=== PATIENT | female | born 1945 | race Caucasian/White ===

== ENCOUNTER 2017-09-24 12:17 | Outpatient (CLI) | payer MEDICARE, OTHER ==
--- NOTE | 2017-09-27 11:54 | Mammography Report ---
BILATERAL SCREENING MAMMOGRAM: 09/24/2017 COMPARISON: Mammogram 02/23/2016. INDICATION: Screening. TECHNIQUE: Routine bilateral CC and MLO projections were obtained of the breasts. FINDINGS: The breast parenchyma is heterogeneously dense which may limit the sensitivity of mammography. There are postoperative changes of the right breast. No dominant mass, architectural distortion, or concerning cluster of microcalcifications are seen. IMPRESSION: 1. BIRADS CATEGORY 2 - BENIGN FINDINGS. 2. RECOMMEND ANNUAL SCREENING MAMMOGRAM. STANDARD QUALIFYING STATEMENTS: 1. This examination was reviewed with the aid of Computer-Aided Detection (CAD) . 2. A negative or benign imaging report should not delay biopsy if clinically suspicious findings are present. Consider surgical consultation if warranted. More than 5 % of cancers are not identified by imaging. 3. Dense breasts may obscure an underlying neoplasm. TD: 09/27/2017 11:54 MTDScot
== END 2017-09-24 12:18 | disposition home or self-care (01) ==
LOC: DI 12:17
PROVIDERS: ATTEND Internal Medicine
DX: Z12.31 Encounter for screening mammogram for malignant neoplasm of breast (principal)
CPT/HCPCS: 77067

== ENCOUNTER 2017-11-23 12:19 | Outpatient (CLI) | payer MEDICARE, OTHER ==
[2017-11-23 18:48] LABS: BASOPHILS # (AUTO) 0.1 10^3/uL (0.0-0.1); BASOPHILS % (AUTO) 1.3 %; EOSINOPHILS # (AUTO) 0.1 10^3/uL (0.0-0.7); EOSINOPHILS % (AUTO) 2.1 %; HGB - HEMOGLOBIN 14.3 g/dL (12.0-16.0); LYMPHOCYTES # (AUTO) 1.8 10^3/uL (1.5-3.5); LYMPHOCYTES % (AUTO) 27.1 %; MEAN CORPUSCULAR HEMOGLOBIN 30.2 pg (27.0-31.0); MEAN CORPUSCULAR HGB CONC 32.2 g/dL (32.0-36.0); MEAN CORPUSCULAR VOLUME 93.5 fL (81.0-99.0); MEAN PLATELET VOLUME 9.7 fL (7.9-10.8); MONOCYTES # (AUTO) 0.5 10^3/uL (0.0-1.0); MONOCYTES % (AUTO) 7.5 %; PLT - PLATELET COUNT 186 10^3/uL (130-450); RED BLOOD COUNT 4.75 10^6/uL (4.20-5.40); RED CELL DISTRIBUTION WIDTH 15.3 % (12.0-15.0); WHITE BLOOD COUNT 6.5 x10^3/uL (4.8-10.8)
[2017-11-23 19:27] LABS: ALBUMIN 4.1 g/dL (3.2-5.5); ALBUMIN/GLOBULIN RATIO 1.2 (1.0-2.2); ALKALINE PHOSPHATASE 68 IU/L (42-121); ALT ALANINE AMINOTRANSFERASE 18 IU/L (10-60); AST ASPARTATE AMINOTRANSFERASE 20 IU/L (10-42); BILIRUBIN,TOTAL 0.8 mg/dL (0.2-1.0); BUN - BLOOD UREA NITROGEN 19 mg/dL (6-20); CALCIUM 9.9 mg/dL (8.5-10.3); CARBON DIOXIDE - CO2 27 mmol/L (21-32); CHLORIDE 105 mmol/L (101-111); CHOL/HDL RATIO 3.5 (<4.4); CHOLESTEROL 268 mg/dL; CREATININE 0.8 mg/dL (0.4-1.0); GFR - MDRD 70 (>89); GLUCOSE 88 mg/dL (70-100); HDL CHOLESTEROL 76 mg/dL; LDL CHOLESTEROL,CALCULATED 171 mg/dL; LDL/HDL RATIO 2.3 (<4.4); SODIUM 139 mmol/L (135-145); TOTAL PROTEIN 7.6 g/dL (6.7-8.2); VLDL CHOLESTEROL 21 mg/dL
[2017-11-23 20:47] LABS: HB2 TOTAL 16.2 g/dL; HEMOGLOBIN A1C 0.51 g/dL
== END 2017-11-23 12:20 | disposition home or self-care (01) ==
LOC: LAB.WCP 12:19
PROVIDERS: ATTEND Physician Assistant
DX: Z00.00 Encounter for general adult medical examination without abnormal findings (principal); I10 Essential (primary) hypertension; E78.00 Pure hypercholesterolemia, unspecified
CPT/HCPCS: 36415; 80053; 80061; 83036; 83721; 84443; 85025

== ENCOUNTER 2017-12-13 07:26 | Outpatient (CLI) | payer MEDICARE, OTHER ==
[2017-12-13] MEDS ORDERED: GADOBUTROL 7.5 MMOL/7.5 ML VIAL ONE (07:50)
[2017-12-13] MEDS ORDERED: GADOBUTROL 7.5 MMOL/7.5 ML VIAL IVP ONE (08:35)
--- NOTE | 2017-12-13 17:01 | MRI Report ---
MRI BRAIN WITHOUT AND WITH CONTRAST INDICATION: 72-year-old female. Right face numbness 6 weeks ago, mostly subsided now. TECHNIQUE: 1. Sagittal T1 3-D and T1 spin-echo. 2. Coronal fat-saturated T2. 3. Axial T1 3-D, FLAIR, T2, T2* and DWI. 4. 7.5 cc IV Gadavist. T1 3-D axial with sagittal and coronal reformats. COMPARISON: None. FINDINGS: There is mild generalized prominence of the cerebral cortical sulci and very mild, ex vacuo enlargeme nt of the third and lateral ventricles. The degree of volume loss is considered well within normal li mits for stated age. A roughly 6.5 x 5.5 mm, T1 hypointense and T2 hyperintense lesion is identified in mid, left thalamus , consistent with the sequela of prior, lacunar type infarction. There is no diffusion restriction on DWI. A mild amount of white matter disease is identified in the supratentorial brain, manifested as small T2 hyperintensities that are scattered throughout the periventricular, deep and subcortical white mat ter bilaterally. A frontoparietal distribution predominates. 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 The signal intensity of cortex and white matter is otherwise unremarkable. There appear to be flow voids for the main intracranial arteries. No abnormal diffusion restriction i s demonstrated. No evidence of acute or chronic hemorrhage on T2*GRE sequence. There is a homogeneously and robustly enhancing extra-axial mass lesion in the anteromedial aspect of the left middle cranial fossa that measures about 10 mm maximal AP by 9.5 mm maximal transverse by 1 2 mm maximal craniocaudad. This lesion is of relatively low signal intensity on T2. There is no appar ent mass effect on the adjacent, mesial anterior left temporal lobe. No additional enhancing extra- o r intra-axial mass lesion is identified. No pathologic meningeal or cranial nerve enhancement is demo nstrated. There appears be normal intravascular contrast enhancement in the dural venous sinuses and deep venous structures. Limited assessment of the orbits reveals no gross pathology. There is minor m ucosal thickening in a few ethmoid air cells. The paranasal sinuses are otherwise essentially clear. A small amount of fluid is identified at the right mastoid tip. There is a minimal amount of fluid at left mastoid tip. No soft tissue swelling is identified overlying either mastoid. There is no eviden ce of an obstructing nasopharyngeal mass. Marrow signal intensity in the regional skeletal structures is unremarkable. IMPRESSION: 1. 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 2. A 6.5 x 5.5 mm, T2 hyperintense/T1 hypointense lesion is identified in mid left thalamus, consiste nt with the sequela of prior (subacute or older) lacunar type infarction. This most likely represents the cause for the patient's right face numbness that occurred 6 weeks ago. 3. Small enhancing extra-axial mass lesion, anteromedial aspect left middle cranial fossa as describe d. No significant mass effect on adjacent left temporal lobe. There is a differential for this lesion that would include dural based metastasis. However, this most likely represents a benign meningioma. 4. No other significant intracranial findings. Referring Provider Line: [phone] SITE ID: [id number]
[2017-12-13 17:15] VITALS: BP 142/84
--- NOTE | 2017-12-13 17:20 | CARDIAC PROCEDURE NOTE ---
DATE OF SERVICE: 12/13/2017 Physician: SHIRIN Sotelo PROCEDURE: Cardiac treadmill stress test. PROCEDURE SYMPTOMS: Shortness of breath with exertion. CARDIAC RISK FACTORS: Age, hypertension, hyperlipidemia. PREVIOUS CARDIAC PROCEDURES: None. CLINICAL HISTORY: A 72-year-old female without known coronary artery disease. INITIAL RESTING VITAL SIGNS: Blood pressure 142/84, heart rate 89, height 66 inches, weight 173 pounds, BMI 28.68. PROCEDURE AND FINDINGS: The patient identity and date verified. Consent signed. The patient performed treadmill exercise using a Sergio protocol completing 4 minutes , 4 seconds and completing an estimated workload of 5.91 metabolic equivalents. Maximal blood pressure was 192/98 with a heart rate of 152 beats per minute or 104% of maximum predicted heart rate for age. The blood pressure response to exercise was within normal limits. The patient stopped suddenly on her own, stating "I cannot exercise and talk at the same time." We were in the process of asking how hard she was exercising. She denied that she had any chest pain or exertional dyspnea when she stopped. The resting ECG demonstrated normal sinus rhythm with nonspecific ST and T-wave changes. Maximum ST segment depression was 1 mm and horizontal, with inverted T-waves in all inferior and lateral leads. There was 1 PVC. FINAL IMPRESSION: 1. Suboptimal exam as the patient jumped off the treadmill prematurely. However , she met criteria for an acceptable test. 2. Positive stress electrocardiogram for ischemia by electrocardiographic criteria. 3. Negative stress test clinically for angina. 4. Single PVC. 5. Recommend further cardiac testing with myocardial perfusion scan. TD: 12/13/2017 15:12 MTDScot
== END 2017-12-13 07:27 | disposition home or self-care (01) ==
LOC: DI 07:26
PROVIDERS: ATTEND Physician Assistant
DX: R20.0 Anesthesia of skin (principal); G93.9 Disorder of brain, unspecified; R06.02 Shortness of breath; I25.9 Chronic ischemic heart disease, unspecified; I49.3 Ventricular premature depolarization
CPT/HCPCS: 70553; A9585

== ENCOUNTER → 2018-01-24 | Outpatient (CLI) | payer MEDICARE, OTHER | LOC: DI 09:00 | PROVIDERS: ATTEND Physician Assistant | DX: Z53.9 Procedure and treatment not carried out, unspecified reason (principal) | CPT/HCPCS: 78452; 93017 ==

== ENCOUNTER 2018-03-07 09:18 | Outpatient (CLI) | payer MEDICARE, OTHER ==
--- NOTE | 2018-03-07 12:17 | Ultrasound Report ---
Procedure Date: 03/07/2018 Accession Number: [id number] / [id number] Procedure: US - Carotid Doppler Complete CPT Code: FULL RESULT: EXAM: BILATERAL CAROTID AND VERTEBRAL ARTERY DUPLEX DOPPLER ULTRASOUND: EXAM DATE: 03/07/2018 09:35 AM CLINICAL HISTORY: Hyperlipidemia, history of stroke. COMPARISON: 12/13/2017 brain MRI. TECHNIQUE: Grayscale imaging, color Doppler, and duplex spectral Doppler were used to evaluate the carotid and vertebral arteries bilaterally. Static images were obtained. FINDINGS: Minimal plaque is identified . normal antegrade flow is present in bilateral vertebral arteries. VELOCITIES (cm/sec): Right CCA mid: PSV 125 cm/sec CCA dist: PSV 109 cm/sec ICA prox: PSV 87 cm/sec, EDV 24 cm/sec ICA mid: PSV 79 cm/sec, EDV 28 cm/sec ICA dist: PSV 91 cm/sec, EDV 27 cm/sec ECA: PSV 105 cm/sec Vert: PSV 46 cm/sec ICA/CCA: 0.72 Left CCA mid: PSV 130 cm/sec CCA dist: PSV 103 cm/sec ICA prox: PSV 80 cm/sec, EDV 18 cm/sec ICA mid: PSV 73 cm/sec, EDV 22 cm/sec ICA dist: PSV 81 cm/sec, EDV 29 cm/sec ECA: PSV 120 cm/sec Vert: PSV 69 cm/sec ICA/CCA: 0.62 ICA diameter stenosis: Right: <50% by velocity and <70% by NASCET criteria. Left: <50% by velocity and <70% by NASCET criteria. IMPRESSION: 1. Minimal bilateral carotid artery plaquing. 2. In the right carotid artery there are no elevated carotid artery velocities to suggest hemodynamically significant stenosis. 3. In the left carotid artery there are no elevated carotid artery velocities to suggest hemodynamically significant stenosis. 4. Normal antegrade flow is present in bilateral vertebral arteries. General Recommendations: Stenosis =50% ICA - Follow-up ultrasound 6-12 months Stenosis <50% ICA - High Risk Patient with plaque - Follow-up ultrasound 1-2 years Normal Study but High Risk Patient - Follow-up ultrasound 3-5 years Management recommendations and diagnostic criteria are based on current IAC endorsed standards in Carotid Artery Stenosis: Grayscale and Doppler Ultrasound Diagnosis. Validated velocity measurements with angiographic measurements and velocity criteria are extrapolated from diameter data as defined by the Society of Radiologists in Ultrasound Consensus Conference Radiology 2003; 229;340-346. RADIA
== END 2018-03-07 09:19 | disposition home or self-care (01) ==
LOC: DI 09:18
PROVIDERS: ATTEND Internal Medicine Cardiovascular Disease
DX: E78.5 Hyperlipidemia, unspecified (principal); Z86.73 Personal history of transient ischemic attack (TIA), and cerebral infarction without residual deficits
CPT/HCPCS: 93880

== ENCOUNTER 2018-08-09 08:00 | Outpatient (CLI) | payer MEDICARE, OTHER ==
[2018-08-09 14:09] LABS: ALBUMIN/GLOBULIN RATIO 1.3 (1.0-2.2); ALKALINE PHOSPHATASE 66 IU/L (42-121); ALT ALANINE AMINOTRANSFERASE 19 IU/L (10-60); AST ASPARTATE AMINOTRANSFERASE 20 IU/L (10-42); BUN - BLOOD UREA NITROGEN 19 mg/dL (6-20); CALCIUM 9.6 mg/dL (8.5-10.3); CARBON DIOXIDE - CO2 26 mmol/L (21-32); CHLORIDE 108 mmol/L (101-111); CHOL/HDL RATIO 2.1 (<4.4); CHOLESTEROL 144 mg/dL; CREATININE 0.7 mg/dL (0.4-1.0); GFR - MDRD 82 (>89); GLUCOSE 96 mg/dL (70-100); HDL CHOLESTEROL 69 mg/dL; LDL CHOLESTEROL,CALCULATED 61 mg/dL; LDL/HDL RATIO 0.9 (<4.4); SODIUM 138 mmol/L (135-145); TOTAL PROTEIN 7.2 g/dL (6.7-8.2); VLDL CHOLESTEROL 14 mg/dL
== END 2018-08-09 23:59 | disposition home or self-care (01) ==
LOC: LAB.WCP 08:00
PROVIDERS: ATTEND Physician Assistant
DX: I10 Essential (primary) hypertension (principal)
CPT/HCPCS: 36415; 80053; 80061; 83721

== ENCOUNTER 2019-03-19 12:17 | Outpatient (CLI) | payer MEDICARE, OTHER ==
[2019-03-19 13:09] LABS: BASOPHILS # (AUTO) 0.1 10^3/uL (0.0-0.1); BASOPHILS % (AUTO) 1.3 %; EOSINOPHILS # (AUTO) 0.3 10^3/uL (0.0-0.7); EOSINOPHILS % (AUTO) 4.3 %; HGB - HEMOGLOBIN 13.7 g/dL (12.0-16.0); LYMPHOCYTES # (AUTO) 1.6 10^3/uL (1.5-3.5); MEAN CORPUSCULAR HEMOGLOBIN 30.2 pg (27.0-31.0); MEAN CORPUSCULAR HGB CONC 31.7 g/dL (32.0-36.0); MEAN CORPUSCULAR VOLUME 95.4 fL (81.0-99.0); MEAN PLATELET VOLUME 11.1 fL (7.9-10.8); MONOCYTES # (AUTO) 0.5 10^3/uL (0.0-1.0); MONOCYTES % (AUTO) 7.6 %; NEUTROPHILS # (AUTO) 3.8 10^3/uL (1.5-6.6); NEUTROPHILS % (AUTO) 60.6 %; PLT - PLATELET COUNT 140 10^3/uL (130-450); RED BLOOD COUNT 4.53 10^6/uL (4.20-5.40); RED CELL DISTRIBUTION WIDTH 13.7 % (12.0-15.0); WHITE BLOOD COUNT 6.2 x10^3/uL (4.8-10.8)
[2019-03-19 13:13] LABS: ALBUMIN/GLOBULIN RATIO 1.3 (1.0-2.2); ALKALINE PHOSPHATASE 61 IU/L (42-121); ALT ALANINE AMINOTRANSFERASE 20 IU/L (10-60); AST ASPARTATE AMINOTRANSFERASE 19 IU/L (10-42); BILIRUBIN,TOTAL 0.7 mg/dL (0.2-1.0); BUN - BLOOD UREA NITROGEN 29 mg/dL (6-20); CALCIUM 9.9 mg/dL (8.5-10.3); CARBON DIOXIDE - CO2 27 mmol/L (21-32); CHLORIDE 108 mmol/L (101-111); CHOL/HDL RATIO 2.2 (<4.4); CHOLESTEROL 150 mg/dL; GFR - MDRD 54 (>89); GLUCOSE 95 mg/dL (70-100); HDL CHOLESTEROL 67 mg/dL; LDL CHOLESTEROL,CALCULATED 70 mg/dL; SODIUM 141 mmol/L (135-145); TOTAL PROTEIN 7.1 g/dL (6.7-8.2); VLDL CHOLESTEROL 13 mg/dL
[2019-03-19 13:49] LABS: HB2 TOTAL 13.8 g/dL; HEMOGLOBIN A1C 0.5 g/dL; HEMOGLOBIN A1C % 5.5 % (4.6-6.2)
== END 2019-03-19 23:59 | disposition home or self-care (01) ==
LOC: LAB.WCP 12:17
PROVIDERS: ATTEND Physician Assistant
DX: Z00.00 Encounter for general adult medical examination without abnormal findings (principal); R94.39 Abnormal result of other cardiovascular function study; R06.09 Other forms of dyspnea; R20.0 Anesthesia of skin; I10 Essential (primary) hypertension; E78.00 Pure hypercholesterolemia, unspecified
CPT/HCPCS: 36415; 80053; 80061; 83036; 83721; 84443; 85025

== ENCOUNTER 2019-06-16 13:15 | Outpatient (CLI) | payer MEDICARE, OTHER ==
--- NOTE | 2019-06-16 16:57 | Mammography Report ---
Reason: SCREENING MAMMO Procedure Date: 06/16/2019 Accession Number: [id number] / [id number] Procedure: SILVESTRE - Screening Mammo w/Albino CPT Code: Final Report FULL RESULT: EXAM: Screening Mammo w/Albino DATE: 06/16/2019 1:50 PM CLINICAL HISTORY: The patient is an asymptomatic 73-year-old female presenting for screening mammography. No personal nor family history of breast cancer. Prior benign right breast excisional biopsy. TECHNIQUE: (B) - Bilateral CC and MLO views were obtained. Tomography utilized. COMPARISON: 09/24/2017, 02/23/2016, 01/04/2015 and 01/30/2013 PARENCHYMAL PATTERN: (A) - The breasts demonstrate scattered fibroglandular densities bilaterally. FINDINGS: Postsurgical deformity in the right breast is unchanged. Few scattered and loosely grouped calcifications noted in both breasts. There are no developing suspicious masses, pleomorphic calcifications, or areas of distortion. IMPRESSION: Benign findings. BI-RADS category 2. RECOMMENDATION: (ANNUAL) - Recommend routine annual screening mammography. BI-RADS CATEGORY: (2) - Benign Findings. STANDARD QUALIFYING STATEMENTS: 1. This examination was not reviewed with the aid of Computer-Aided Detection (CAD). 2. A negative or benign imaging report should not preclude biopsy if clinically suspicious findings are present. 3. Dense breasts may obscure an underlying neoplasm. 4. This examination was reviewed with the aid of 3D breast imaging (tomosynthesis).
== END 2019-06-16 13:16 | disposition home or self-care (01) ==
LOC: DI 13:15
DX: Z12.31 Encounter for screening mammogram for malignant neoplasm of breast (principal)
CPT/HCPCS: 77063; 77067

== ENCOUNTER 2020-03-18 08:00 | Outpatient (CLI) | payer MEDICARE, OTHER ==
[2020-03-18 12:03] LABS: BASOPHILS # (AUTO) 0.1 10^3/uL (0.0-0.1); BASOPHILS % (AUTO) 0.9 %; EOSINOPHILS # (AUTO) 0.3 10^3/uL (0.0-0.7); HGB - HEMOGLOBIN 13.9 g/dL (12.0-16.0); LYMPHOCYTES # (AUTO) 1.8 10^3/uL (1.5-3.5); LYMPHOCYTES % (AUTO) 23.4 %; MEAN CORPUSCULAR HEMOGLOBIN 29.8 pg (27.0-31.0); MEAN CORPUSCULAR HGB CONC 31.6 g/dL (32.0-36.0); MEAN CORPUSCULAR VOLUME 94.4 fL (81.0-99.0); MEAN PLATELET VOLUME 10.4 fL (7.9-10.8); MONOCYTES # (AUTO) 0.6 10^3/uL (0.0-1.0); MONOCYTES % (AUTO) 7.2 %; NEUTROPHILS # (AUTO) 4.9 10^3/uL (1.5-6.6); NEUTROPHILS % (AUTO) 64.2 %; PLT - PLATELET COUNT 243 10^3/uL (130-450); RED BLOOD COUNT 4.66 10^6/uL (4.20-5.40); RED CELL DISTRIBUTION WIDTH 13.7 % (12.0-15.0); WHITE BLOOD COUNT 7.7 x10^3/uL (4.8-10.8)
[2020-03-18 12:18] LABS: ALBUMIN 4.1 g/dL (3.2-5.5); ALBUMIN/GLOBULIN RATIO 1.3 (1.0-2.2); ALKALINE PHOSPHATASE 72 IU/L (42-121); ALT ALANINE AMINOTRANSFERASE 23 IU/L (10-60); AST ASPARTATE AMINOTRANSFERASE 20 IU/L (10-42); BILIRUBIN,TOTAL 0.9 mg/dL (0.2-1.0); BUN - BLOOD UREA NITROGEN 22 mg/dL (6-20); CALCIUM 9.7 mg/dL (8.5-10.3); CARBON DIOXIDE - CO2 29 mmol/L (21-32); CHLORIDE 107 mmol/L (101-111); CHOL/HDL RATIO 2.4 (<4.4); CHOLESTEROL 150 mg/dL; CREATININE 0.9 mg/dL (0.4-1.0); GLUCOSE 99 mg/dL (70-100); HDL CHOLESTEROL 63 mg/dL; LDL CHOLESTEROL,CALCULATED 72 mg/dL; LDL/HDL RATIO 1.1 (<4.4); SODIUM 142 mmol/L (135-145); TOTAL PROTEIN 7.2 g/dL (6.7-8.2); VLDL CHOLESTEROL 15 mg/dL
== END 2020-03-18 23:59 | disposition home or self-care (01) ==
LOC: LAB.WCP 08:00
PROVIDERS: ATTEND Physician Assistant
DX: Z00.00 Encounter for general adult medical examination without abnormal findings (principal); R73.9 Hyperglycemia, unspecified; E78.00 Pure hypercholesterolemia, unspecified; I10 Essential (primary) hypertension
CPT/HCPCS: 36415; 80053; 80061; 83721; 84443; 85025

== ENCOUNTER 2020-08-27 12:14 | Outpatient (CLI) | payer MEDICARE, OTHER ==
--- NOTE | 2020-08-30 12:55 | Mammography Report ---
BILATERAL DIGITAL SCREENING MAMMOGRAM 3D/2D: 08/27/2020 CLINICAL: Baseline exam. Routine screening. Comparison is made to exams dated: 06/16/2019 mammogram, 09/24/2017 mammogram, and 02/23/2016 mammogram - [facility]. There are scattered fibroglandular elements in both breasts. There is a 1.2 cm irregular high density focal asymmetry in the right breast at 12 o'clock anterior d epth. This is more prominent and increased in size. There is a post-surgical scar associated with t he focal asymmetry. There also is a 0.5 cm irregular equal density asymmetry in the right breast posterior depth superior region seen on the mediolateral oblique view only. This is more prominent and increased in size. No other significant masses, calcifications, or other findings are seen in either breast. IMPRESSION: INCOMPLETE: NEEDS ADDITIONAL IMAGING EVALUATION The 1.2 cm irregular high density focal asymmetry in the right breast at 12 o'clock anterior depth is indeterminate. Additional views with possible ultrasound are recommended. The 0.5 cm irregular equal density asymmetry in the right breast posterior depth superior region seen on the mediolateral oblique view only is indeterminate. Additional views with possible ultrasound a re recommended. This exam was interpreted at Station ID: [id number]. NOTE: For mammograms, a report in lay terms will be sent to the patient. Approximately 15% of breast malignancies will not be visualized mammographically. In the management of a palpable breast mass, a negative mammogram must not discourage biopsy of a clinically suspicious lesion. Electronically Signed By: Pastor Crowley M.D. aty/penrad:08/27/2020 13:19:59 ACR BI-RADS Category 0: Incomplete 3340F PARENCHYMAL PATTERN: (A) - The breast(s) demonstrate(s) scattered fibroglandular densities. BI-RADS CATEGORY: (0) - 0 Mammo and US [id number] Immediate follow-up LATERALITY: (R)
== END 2020-08-27 12:15 | disposition home or self-care (01) ==
LOC: DI 12:14
DX: Z12.31 Encounter for screening mammogram for malignant neoplasm of breast (principal); R92.8 Other abnormal and inconclusive findings on diagnostic imaging of breast

== ENCOUNTER 2020-09-20 10:52 | Outpatient (CLI) | payer MEDICARE, OTHER ==
--- NOTE | 2020-09-21 11:33 | Mammography Report ---
UNILATERAL RIGHT DIGITAL DIAGNOSTIC MAMMOGRAM 3D/2D: 09/20/2020 CLINICAL: Patient returns today to evaluate a focal asymmetry in the right breast. Comparison is made to exams dated: 08/27/2020 mammogram, 06/16/2019 mammogram, 09/24/2017 mammogram, an d 02/23/2016 mammogram - [facility]. There are scattered fibroglandular elements in right breast. There is an oval equal density focal asymmetry with an indistinct margin in the right breast at 11 o' clock middle depth. This is more prominent and correlates with sequelae of prior surgery. There is architectural distortion, a post-surgical scar, skin retraction, and trabecular thickening associated with the focal asymmetry. There also is an oval equal density asymmetry with an indistinct and circumscribed margin in the righ t breast posterior depth superior region seen on the mediolateral oblique view only. No other significant masses or calcifications are seen in the breast. IMPRESSION: INCOMPLETE: NEEDS ADDITIONAL IMAGING EVALUATION The oval equal density focal asymmetry in the right breast at 11 o'clock middle depth is indeterminat e. An ultrasound is recommended. The oval equal density asymmetry in the right breast posterior depth superior region seen on the medi olateral oblique view only is indeterminate. An ultrasound is recommended. Ultrasound will be performed immediately following the current exam. This exam was interpreted at Station ID: [id number]. NOTE: For mammograms, a report in lay terms will be sent to the patient. Approximately 15% of breast malignancies will not be visualized mammographically. In the management of a palpable breast mass, a negative mammogram must not discourage biopsy of a clinically suspicious lesion. Electronically Signed By: Braxton Judge M.D. ddp/:09/20/2020 11:43:48 ACR BI-RADS Category 0: Incomplete 3340F PARENCHYMAL PATTERN: (A) - The breast(s) demonstrate(s) scattered fibroglandular densities. BI-RADS CATEGORY: (0) - 0 Ultrasound [id number] Immediate follow-up LATERALITY: (B)
--- NOTE | 2020-09-21 11:34 | Ultrasound Report ---
LIMITED ULTRASOUND OF RIGHT BREAST AND AXILLA: 09/20/2020 CLINICAL: Patient returns for additional imaging over a suspected mass in the right breast. Comparison is made to exams dated: 09/20/2020 mammogram, 08/27/2020 mammogram, 06/16/2019 mammogram, 09/13 mammogram, and 02/23/2016 mammogram - [facility]. Color flow and real-time ultrasound of the right breast 10-12 o'clock, and axilla regions were perfor med on the areas of interest. There is a 0.6 cm x 0.5 cm x 0.5 cm oval mass with an indistinct margin in the right breast at 11 o'c lock middle depth. This oval mass is hypoechoic and hyperechoic but of mixed echogenicity. This cor relates with mammography findings. Color flow imaging demonstrates that there is no vascularity pres ent. There also is a benign 1.6 cm x 1.3 cm x 1.8 cm irregular post-surgical scar with an indistinct brandan n in the right breast at 12 o'clock anterior depth. This irregular post-surgical scar is hypoechoic with posterior acoustic shadowing and extends to the skin. This correlates with mammography findings . Color flow imaging demonstrates that there is no vascularity present. IMPRESSION: SUSPICIOUS OF MALIGNANCY The 0.6 cm x 0.5 cm x 0.5 cm oval mass in the right breast at 11 o'clock middle depth is suspicious o f malignancy. An ultrasound guided biopsy is recommended. The 1.6 cm x 1.3 cm x 1.8 cm irregular post-surgical scar in the right breast at 12 o'clock anterior depth appears benign. The findings were discussed with the patient at the conclusion of the study by Dr. Brumfield. This exam was interpreted at Station ID: [id number]. Electronically Signed By: Braxton Judge M.D. ddp/:09/20/2020 12:24:47 Ultrasound BI-RADS: 4 Suspicious for malignancy BI-RADS CATEGORY: (4) - 4 None [id number] Immediate follow-up LATERALITY: ()
== END 2020-09-20 10:53 | disposition home or self-care (01) ==
LOC: DI 10:52
PROVIDERS: ATTEND Internal Medicine
DX: N63.11 Unspecified lump in the right breast, upper outer quadrant (principal)

== ENCOUNTER 2020-10-04 08:00 | Outpatient (CLI) | payer MEDICARE, OTHER ==
[2020-10-04 11:32] LABS: BASOPHILS # (AUTO) 0.1 10^3/uL (0.0-0.1); BASOPHILS % (AUTO) 1.1 %; EOSINOPHILS # (AUTO) 0.2 10^3/uL (0.0-0.7); EOSINOPHILS % (AUTO) 3.9 %; HCT - HEMATOCRIT 44.3 % (37.0-47.0); LYMPHOCYTES # (AUTO) 1.4 10^3/uL (1.5-3.5); LYMPHOCYTES % (AUTO) 22.7 %; MEAN CORPUSCULAR HGB CONC 31.6 g/dL (32.0-36.0); MEAN CORPUSCULAR VOLUME 94.9 fL (81.0-99.0); MEAN PLATELET VOLUME 11.2 fL (7.9-10.8); MONOCYTES # (AUTO) 0.5 10^3/uL (0.0-1.0); MONOCYTES % (AUTO) 7.7 %; NEUTROPHILS % (AUTO) 64.4 %; PLT - PLATELET COUNT 178 10^3/uL (130-450); RED BLOOD COUNT 4.67 10^6/uL (4.20-5.40); WHITE BLOOD COUNT 6.1 x10^3/uL (4.8-10.8)
[2020-10-04 12:28] LABS: ALBUMIN 4.3 g/dL (3.2-5.5); ALBUMIN/GLOBULIN RATIO 1.3 (1.0-2.2); BILIRUBIN,TOTAL 0.8 mg/dL (0.2-1.0); CALCIUM 10.2 mg/dL (8.5-10.3); CREATININE 0.8 mg/dL (0.4-1.0); MAGNESIUM 2.3 mg/dL (1.7-2.8); POTASSIUM 4.3 mmol/L (3.5-5.0); TOTAL PROTEIN 7.6 g/dL (6.7-8.2)
[2020-10-04 12:48] LABS: ESTIMATED AVERAGE GLUCOSE 103 mg/dL (70-100); HEMOGLOBIN A1c% 5.2 % (4.27-6.07)
== END 2020-10-04 23:59 | disposition home or self-care (01) ==
LOC: LAB.WCP 08:00
PROVIDERS: ATTEND Internal Medicine
DX: G47.62 Sleep related leg cramps (principal); R73.01 Impaired fasting glucose; R92.8 Other abnormal and inconclusive findings on diagnostic imaging of breast; I10 Essential (primary) hypertension
CPT/HCPCS: 36415; 80053; 83036; 83735; 85025

== ENCOUNTER 2020-10-08 12:49 | Outpatient (CLI) | payer MEDICARE, OTHER ==
[~2020-10-08 12:49] MED LIST: BUFFERED LIDOCAINE 10 ML SYRINGE ONE
[2020-10-08] MEDS ORDERED: BUFFERED LIDOCAINE 10 ML SYRINGE IU ONE (13:56)
--- NOTE | 2020-10-12 11:15 | Ultrasound Report ---
LIMITED ULTRASOUND OF RIGHT BREAST: 10/08/2020 CLINICAL: Additional evaluation requested from prior study.Rt breast biopsy cancelled. Comparison is made to exam dated: 09/20/2020 ultrasound - [facility]. Color flow ultrasound of the right breast 11 o'clock region was performed on the areas of interest. Hinojosa scale images of the real-time examination were reviewed. The breast tissue is homogeneous fibroglandular in the right breast. There is a 0.4 cm x 0.2 cm x 0.3 cm oval mass with a circumscribed margin in the right breast at 11 o 'clock middle depth. This oval mass is hypoechoic. This abnormality is decreased in size and correl ates with prior 09/20/20 ultrasound findings when the size was reported as 6 x 5 x 5 mm. Color flow im aging demonstrates that there is no vascularity present. IMPRESSION: SUSPICIOUS OF MALIGNANCY The 0.4 cm x 0.2 cm x 0.3 cm oval mass in the right breast likely represents a benign involuting mild ly complex cyst and is at a low suspicion for malignancy. A 6-month followup targeted US is recommen ded for followup. The findings and recommendation were reviewed with the patient and she agrees with this approach. This exam was interpreted at Station ID: [id number]. Electronically Signed By: Kavon Mckinney M.D. [facility]/:10/11/2020 09:34:54 Ultrasound BI-RADS: 4a Low suspicion for malignancy BI-RADS CATEGORY: (4a) - Low Susp Unspecified - other recall n/a LATERALITY: (B)
== END 2020-10-08 12:50 | disposition home or self-care (01) ==
LOC: DI 12:49
PROVIDERS: ATTEND Internal Medicine
DX: R92.8 Other abnormal and inconclusive findings on diagnostic imaging of breast (principal)

== ENCOUNTER 2020-11-01 08:15 | Outpatient (CLI) | payer MEDICARE, OTHER ==
--- NOTE | 2020-11-01 10:50 | DEXA Report ---
PROCEDURE: Dexa Spine and/or Hip INDICATIONS: MENOPAUSAL STATE TECHNIQUE: Dual energy x-ray absorptiometry (DXA) was performed on a Zocere System. Regions measur ed are the AP Spine, femoral neck, and if needed forearm. COMPARISON: None. FINDINGS: Lumbar Spine: Bone Mineral Density 1.175 g/cm/cm,T score 0.0, normal bone mineral density Left Femoral Neck: Bone Mineral Density 0.966 g/cm/cm, T score -0.3, normal bone mineral density (T score greater or equal to -1.0: NORMAL) (T score from -1.1 to -2.4: OSTEOPENIA) (T score less than or equal to -2.5 to: OSTEOPOROSIS) Impression: Normal bone mineral density. Patients with diagnosis of osteoporosis or osteopenia should have regular bone mineral density assess ment. For those eligible for Medicare, routine testing is allowed once every 2 years. Testing frequ ency can be increased for patients who have rapidly progressing disease or for those who are receivin g medical therapy to restore bone mass. Reviewed by: Pastor Crowley MD on 11/01/2020 9:49 AM RANDALL Approved by: Pastor Crowley MD on 11/01/2020 9:49 AM RANDALL Station ID: [id number]
== END 2020-11-01 08:16 | disposition home or self-care (01) ==
LOC: DI 08:15
PROVIDERS: ATTEND Internal Medicine
DX: Z78.0 Asymptomatic menopausal state (principal)

== ENCOUNTER 2021-03-23 08:00 | Outpatient (CLI) | payer MEDICARE, OTHER ==
[2021-03-23 12:06] LABS: BASOPHILS # (AUTO) 0.1 10^3/uL (0.0-0.1); BASOPHILS % (AUTO) 0.9 %; EOSINOPHILS # (AUTO) 0.2 10^3/uL (0.0-0.7); EOSINOPHILS % (AUTO) 2.4 %; HCT - HEMATOCRIT 43.1 % (37.0-47.0); HGB - HEMOGLOBIN 13.8 g/dL (12.0-16.0); LYMPHOCYTES # (AUTO) 1.4 10^3/uL (1.5-3.5); LYMPHOCYTES % (AUTO) 21.4 %; MEAN CORPUSCULAR HEMOGLOBIN 30.1 pg (27.0-31.0); MEAN CORPUSCULAR VOLUME 93.9 fL (81.0-99.0); MEAN PLATELET VOLUME 11.2 fL (7.9-10.8); MONOCYTES # (AUTO) 0.5 10^3/uL (0.0-1.0); MONOCYTES % (AUTO) 7.5 %; NEUTROPHILS # (AUTO) 4.5 10^3/uL (1.5-6.6); NEUTROPHILS % (AUTO) 67.6 %; PLT - PLATELET COUNT 225 10^3/uL (130-450); RED BLOOD COUNT 4.59 10^6/uL (4.20-5.40); RED CELL DISTRIBUTION WIDTH 13.7 % (12.0-15.0); WHITE BLOOD COUNT 6.7 x10^3/uL (4.8-10.8)
[2021-03-23 12:23] LABS: BUN - BLOOD UREA NITROGEN 20 mg/dL (6-20); CALCIUM 10.1 mg/dL (8.5-10.3); CARBON DIOXIDE - CO2 26 mmol/L (21-32); CHLORIDE 108 mmol/L (101-111); CHOL/HDL RATIO 2.6 (<4.4); CHOLESTEROL 177 mg/dL; GFR - MDRD 54 (>89); GLUCOSE 101 mg/dL (70-100); HDL CHOLESTEROL 68 mg/dL; LDL CHOLESTEROL,CALCULATED 84 mg/dL; LDL/HDL RATIO 1.2 (<4.4); SODIUM 143 mmol/L (135-145); TRIGLYCERIDES 124 mg/dL; VLDL CHOLESTEROL 25 mg/dL
[2021-03-23 12:38] LABS: ESTIMATED AVERAGE GLUCOSE 114 mg/dL (70-100); HEMOGLOBIN A1c% 5.6 % (4.27-6.07)
== END 2021-03-23 23:59 | disposition home or self-care (01) ==
LOC: LAB.WCP 08:00
PROVIDERS: ATTEND Internal Medicine
DX: I10 Essential (primary) hypertension (principal); E78.5 Hyperlipidemia, unspecified; R73.01 Impaired fasting glucose
CPT/HCPCS: 36415; 80048; 80061; 83036; 83721; 85025

== ENCOUNTER 2021-05-24 08:19 | Outpatient (CLI) | payer MEDICARE, OTHER ==
--- NOTE | 2021-05-25 09:53 | Ultrasound Report ---
LIMITED ULTRASOUND OF RIGHT BREAST AND AXILLA: 05/24/2021 CLINICAL: Patient returns for a 6 month follow up of the right breast. Comparison is made to exams dated: 10/08/2020 ultrasound, 09/20/2020 ultrasound, 09/20/2020 mammogram, 06/2021 mammogram, 06/16/2019 mammogram, and 09/24/2017 mammogram - Located within [facility]. Color flow and real-time ultrasound of the right breast 11 o'clock, and axilla regions were performed on the areas of interest. Hinojosa scale images of the real-time examination were reviewed. There is a 0.5 cm x 0.5 cm x 0.4 cm oval mass with an indistinct margin in the right breast at 11 o'c lock posterior depth 10 cm from the nipple. This oval mass is of mixed echogenicity. This abnormali ty is more prominent and correlates with mammography findings. Color flow imaging demonstrates that there is no vascularity present. No suspicious enlarged lymph nodes were seen sonographically in the axilla. IMPRESSION: SUSPICIOUS OF MALIGNANCY The 0.5 cm x 0.5 cm x 0.4 cm oval mass in the right breast is suspicious of malignancy. An ultrasoun d guided biopsy is recommended. The findings were discussed with the patient at the conclusion of the study by Dr. Crowley. This exam was interpreted at Station ID: [id number]. Electronically Signed By: Braxton Judge M.D. ddp/:05/24/2021 09:18:51 Ultrasound BI-RADS: 4 Suspicious for malignancy BI-RADS CATEGORY: (4) - 4 None [id number] Immediate follow-up LATERALITY: ()
== END 2021-05-24 08:20 | disposition home or self-care (01) ==
LOC: DI 08:19
PROVIDERS: ATTEND Internal Medicine
DX: R92.8 Other abnormal and inconclusive findings on diagnostic imaging of breast (principal)

== ENCOUNTER 2021-06-10 08:00 | Outpatient (CLI) | payer MEDICARE, OTHER ==
[2021-06-10 13:28] LABS: CALCIUM 10.1 mg/dL (8.5-10.3); CREATININE 0.8 mg/dL (0.4-1.0); POTASSIUM 4.3 mmol/L (3.5-5.0)
== END 2021-06-10 23:59 | disposition home or self-care (01) ==
LOC: LAB.WCP 08:00
PROVIDERS: ATTEND Internal Medicine
DX: R90.89 Other abnormal findings on diagnostic imaging of central nervous system (principal)
CPT/HCPCS: 36415; 80048

== ENCOUNTER 2021-10-10 08:00 | Outpatient (CLI) | payer MEDICARE, OTHER ==
--- NOTE | 2021-10-11 14:12 | XRAY Report ---
PROCEDURE: Wrist 4 View LT INDICATIONS: L WRIST PX TECHNIQUE: 4 views of the wrist were acquired. COMPARISON: None FINDINGS: Bones: No fractures or dislocations. No suspicious bony lesions. Severe first CMC joint arthritis. Mild triscaphe joint arthritis. Scaphoid view: Scaphoid is intact. Soft tissues: No suspicious soft tissue calcifications. IMPRESSION: Osteoarthritis as described above. Reviewed by: Trudi Diaz MD, PhD on 10/11/2021 2:11 PM PDT Approved by: Trudi Diaz MD, PhD on 10/11/2021 2:11 PM PDT Station ID: [id number]
== END 2021-10-10 23:59 | disposition home or self-care (01) ==
LOC: DI.N 08:00
PROVIDERS: ATTEND Family Medicine
DX: M19.032 Primary osteoarthritis, left wrist (principal); M18.12 Unilateral primary osteoarthritis of first carpometacarpal joint, left hand

== ENCOUNTER 2021-11-07 13:15 | Outpatient (CLI) | payer MEDICARE, OTHER ==
--- NOTE | 2021-11-07 20:47 | XRAY Report ---
PROCEDURE: Wrist 2 View BILAT INDICATIONS: LEFT WRIST PAIN/LUMP COMPARISION WITH RIGHT TECHNIQUE: 2 views of the wrist were acquired. COMPARISON: X-ray wrist 10/10/2021 FINDINGS: Bones: No fractures or dislocations. No suspicious bony lesions. Severe first CMC degenerative kassi rowing with subchondral sclerosis is present bilaterally. Areas of subchondral lucency are present. Soft tissues: No suspicious soft tissue calcifications. IMPRESSION: Relatively symmetric appearance of osteoarthritis most severe at the first CMC joints bilaterally. Garrido bchondral lucencies are present suggestive of cysts. However, in appropriate clinical and laboratory circumstances, erosions cannot be excluded. Reviewed by: Khadra Parker MD on 11/07/2021 8:46 PM PDT Approved by: Khadra Parker MD on 11/07/2021 8:46 PM PDT Station ID: [id number]
== END 2021-11-07 23:59 | disposition home or self-care (01) ==
LOC: DI.WOS 13:15
PROVIDERS: ATTEND Physician Assistant
DX: M67.432 Ganglion, left wrist (principal); M19.032 Primary osteoarthritis, left wrist; M19.031 Primary osteoarthritis, right wrist

== ENCOUNTER 2021-11-15 15:38 | Outpatient (CLI) | payer MEDICARE, OTHER ==
--- NOTE | 2021-11-15 17:17 | Ultrasound Report ---
PROCEDURE: Ext Limited Non Vascular INDICATIONS: GANGLION CYST OF LEFT WRIST TECHNIQUE: Real-time scanning was performed of the left wrist, with image documentation. Comparativ e images of the right ribs were obtained. COMPARISON: None. FINDINGS: No sonographic abnormality is seen in the area of clinical concern. IMPRESSION: No significant abnormality. Magnetic resonance imaging may be helpful for further evaluation. Reviewed by: Justin Michelle MD on 11/15/2021 5:16 PM PDT Approved by: Justin Michelle MD on 11/15/2021 5:16 PM PDT Station ID: [id number]
== END 2021-11-15 15:39 | disposition home or self-care (01) ==
LOC: DI 15:38
PROVIDERS: ATTEND Physician Assistant
DX: M67.432 Ganglion, left wrist (principal)

== ENCOUNTER 2021-12-23 07:34 | Outpatient (CLI) | payer MEDICARE, OTHER ==
[2021-12-23 12:48] LABS: CREATININE,URINE 224.2 mg/dL; MICROALBUM/CREATININE RATIO,UR 22.3 ug/mg (<30.0)
[2021-12-23 12:54] LABS: ESTIMATED AVERAGE GLUCOSE 111 mg/dL (70-100); HEMOGLOBIN A1c% 5.5 % (4.27-6.07)
[2021-12-23 12:56] LABS: ALBUMIN 4.2 g/dL (3.2-5.5); ALBUMIN/GLOBULIN RATIO 1.4 (1.0-2.2); ALKALINE PHOSPHATASE 71 IU/L (42-121); ALT ALANINE AMINOTRANSFERASE 18 IU/L (10-60); AST ASPARTATE AMINOTRANSFERASE 18 IU/L (10-42); BILIRUBIN,TOTAL 0.7 mg/dL (0.2-1.0); BUN - BLOOD UREA NITROGEN 23 mg/dL (6-20); CARBON DIOXIDE - CO2 28 mmol/L (21-32); CHLORIDE 107 mmol/L (101-111); CHOL/HDL RATIO 2.2 (<4.4); CHOLESTEROL 151 mg/dL; CREATININE 0.8 mg/dL (0.4-1.0); GFR - MDRD 69 (>89); GLUCOSE 100 mg/dL (70-100); HDL CHOLESTEROL 70 mg/dL; LDL CHOLESTEROL,CALCULATED 70 mg/dL; POTASSIUM 4.2 mmol/L (3.5-5.0); SODIUM 140 mmol/L (135-145); TOTAL PROTEIN 7.3 g/dL (6.7-8.2); TRIGLYCERIDES 57 mg/dL; VLDL CHOLESTEROL 11 mg/dL
== END 2021-12-23 07:35 | disposition home or self-care (01) ==
LOC: LAB.N 07:34
PROVIDERS: ATTEND Internal Medicine
DX: I10 Essential (primary) hypertension (principal); E78.5 Hyperlipidemia, unspecified; R73.01 Impaired fasting glucose
CPT/HCPCS: 36415; 80053; 80061; 82043; 82570; 83036; 83721

== ENCOUNTER 2021-12-29 11:08 | Outpatient (CLI) | payer MEDICARE, OTHER ==
[~2021-12-29 11:08] MED LIST changes: -BUFFERED LIDOCAINE 10 ML SYRINGE ONE; +BUPIVACAINE 0.5% PF 10 ML VIAL ONE; +lidocaine 1% 20 ML MDV ONE
[2021-12-29] MEDS ORDERED: BUPIVACAINE 0.5% PF 10 ML VIAL ONE (11:11)
[2021-12-29] MEDS ORDERED: lidocaine 1% 20 ML MDV SUBQ ONE (13:31)
[2021-12-29] MEDS ORDERED: BUPIVACAINE 0.5% PF 10 ML VIAL IM ONE (13:32)
--- NOTE | 2022-01-12 08:58 | Mammography Report ---
UNILATERAL RIGHT DIGITAL DIAGNOSTIC MAMMOGRAM POST-NEEDLE BIOPSY: 12/29/2021 CLINICAL: Post right breast ultrasound biopsy clip placement imaging. Comparison is made to exams dated: 10/19/2021 mammogram - [facility], 09/20/2020 mammogram, 08/27/2020 mammogram, 06/16/2019 mammogram, and 09/24/2017 mammogram - [facility]. There are s cattered fibroglandular elements in right breast. There is a 1.8 cm high density mass with a spiculated margin in the right breast at 11 o'clock anteri or depth 3 cm from the nipple. A biopsy clip is placed adjacent to this mass. There also is a 1 cm irregular mass with an indistinct margin in the right breast at 10 o'clock poste rior depth 10 cm from the nipple. A biopsy clip is placed adjacent to this mass. No other significant masses or calcifications are seen in the breast. IMPRESSION: POST PROCEDURE MAMMOGRAM FOR MARKER PLACEMENT Biopsy clips placed adjacent to the right breast masses as described above. This exam was interpreted at Station ID: [id number]. NOTE: For mammograms, a report in lay terms will be sent to the patient. Approximately 15% of breast malignancies will not be visualized mammographically. In the management of a palpable breast mass, a negative mammogram must not discourage biopsy of a clinically suspicious lesion. Electronically Signed By: Zack weiner,aty/:01/11/2022 18:18:25 ACR BI-RADS Category Post-procedure mammogram for marker placement PARENCHYMAL PATTERN: (A) - The breast(s) demonstrate(s) scattered fibroglandular densities. BI-RADS CATEGORY: () - Unspecified - other recall n/a LATERALITY: (B)
--- NOTE | 2022-01-12 08:58 | Ultrasound Report ---
ULTRASOUND OF RIGHT AXILLA: 12/29/2021 CLINICAL: Right breast mass. Comparison is made to exams dated: 10/19/2021 ultrasound, 10/19/2021 mammogram - [facility], ultrasound, 10/08/2020 ultrasound, 09/20/2020 ultrasound, and 09/20/2020 mammogram - [facility]. Ultrasound of the right axilla was performed on the area of interest. Hinojosa scale images of the real- time examination were reviewed. No sonographic abnormalities seen in the right axilla. IMPRESSION: NEGATIVE There is no sonographic evidence of malignancy within the axilla. This exam was interpreted at Station ID: [id number]. Electronically Signed By: Zack weiner,aty/:01/11/2022 18:12:42 Ultrasound BI-RADS: 1 Negative BI-RADS CATEGORY: (1) - 1 Unspecified - other recall n/a LATERALITY: (B)
--- NOTE | 2022-01-12 08:58 | Ultrasound Report ---
ULTRASOUND GUIDED BIOPSY RIGHT BREAST: 12/29/2021 CLINICAL: Right breast mass. PATIENT CONSENT: Risks (minor bleeding, infection, vasovagal reaction and repeat procedure), benefits and alternatives were explained to the patient and written informed consent was obtained. Correlation is made to exams dated: 12/29/2021 mammogram - [facility], 10/19/2021 ult rasound, 10/19/2021 mammogram - [facility], 05/24/2021 ultrasound, 10/08/2020 ultrasound, and 09/20/2020 ultrasound - [facility]. An ultrasound guided biopsy using real-time ultrasound was performed for the 1.8 cm abnormality locat ed in the right breast at 11 o'clock anterior depth 3 cm from the nipple. The skin was prepped in th e usual manner. A biopsy needle was placed adjacent to the abnormality under ultrasound guidance. O nce the needle was documented to be in the correct location, a specimen was obtained using an automat ed biopsy gun. The specimen was sent to the laboratory for pathological analysis. A second ultrasound guided biopsy using real-time ultrasound was performed for the 1 cm abnormality l ocated in the right breast at 10 o'clock posterior depth 10 cm from the nipple. The skin was prepped in the usual manner. A biopsy needle was placed adjacent to the abnormality under ultrasound guidan ce. Once the needle was documented to be in the correct location, a specimen was obtained using an a utomated biopsy gun. The specimen was sent to the laboratory for pathological analysis. Marker clips were placed at each biopsy site. IMPRESSION: ULTRASOUND GUIDED BIOPSY MALIGNANT Ultrasound guided biopsy of the 0.7 cm x 0.5 cm x 0.6 cm mass in the right breast 10 o'clock posterio r depth was performed. 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 Pathology results are concordant with imaging findings. A surgical/oncologic consultation is recommended. This exam was interpreted at Station ID: [id number]. Zack weiner,aty/:01/11/2022 18:16:48 BI-RADS CATEGORY: () - Unspecified - other recall n/a LATERALITY: (B)
--- NOTE | 2022-01-12 08:58 | Ultrasound Report ---
MULTIPLE ULTRASOUND GUIDED BIOPSIES RIGHT BREAST: 12/29/2021 CLINICAL: Right breast mass. PATIENT CONSENT: Risks (minor bleeding, infection, vasovagal reaction and repeat procedure), benefits and alternatives were explained to the patient and written informed consent was obtained. Correlation is made to exams dated: 10/19/2021 ultrasound - [facility], 12/29/2021 mammogram - [facility], 10/19/2021 mammogram - [facility], 05/24/2021 ultrasound, 10/08/2020 ultrasou nd, and 09/20/2020 ultrasound - [facility]. An ultrasound guided biopsy using real-time ultrasound was performed for the 1.8 cm abnormality locat ed in the right breast at 11 o'clock anterior depth 3 cm from the nipple. The skin was prepped in th e usual manner. A biopsy needle was placed adjacent to the abnormality under ultrasound guidance. O nce the needle was documented to be in the correct location, a specimen was obtained using an automat ed biopsy gun. The specimen was sent to the laboratory for pathological analysis. A second ultrasound guided biopsy using real-time ultrasound was performed for the 1 cm abnormality l ocated in the right breast at 10 o'clock posterior depth 10 cm from the nipple. The skin was prepped in the usual manner. A biopsy needle was placed adjacent to the abnormality under ultrasound guidan ce. Once the needle was documented to be in the correct location, a specimen was obtained using an a utomated biopsy gun. The specimen was sent to the laboratory for pathological analysis. Marker clips were placed at each biopsy site. IMPRESSION: ULTRASOUND GUIDED BIOPSY MALIGNANT Ultrasound guided biopsy of the 1.8 cm x 2.8 cm x 1.7 cm mass in the right breast at 11 o'clock anter ior depth was performed. Pathology indicates malignant invasive ductal carcinoma (ID). Pathology re sults are concordant with imaging findings. A surgical/oncologic consultation is recommended. This exam was interpreted at Station ID: [id number]. Zack weiner,aty/:01/11/2022 18:17:12 BI-RADS CATEGORY: () - Unspecified - other recall n/a LATERALITY: (B)
== END 2021-12-29 11:09 | disposition home or self-care (01) ==
LOC: DI 11:08
PROVIDERS: ATTEND Surgery
DX: C50.411 Malignant neoplasm of upper-outer quadrant of right female breast (principal); Z17.0 Estrogen receptor positive status [ER+]; R59.0 Localized enlarged lymph nodes
CPT/HCPCS: 19083; 19084

== ENCOUNTER 2023-03-16 07:14 | Outpatient (CLI) | payer MEDICARE, OTHER ==
[2023-03-16 12:40] LABS: BASOPHILS # (AUTO) 0.1 10^3/uL (0.0-0.1); BASOPHILS % (AUTO) 0.9 %; EOSINOPHILS # (AUTO) 0.4 10^3/uL (0.0-0.7); EOSINOPHILS % (AUTO) 6.1 %; HCT - HEMATOCRIT 42.8 % (37.0-47.0); HGB - HEMOGLOBIN 13.3 g/dL (12.0-16.0); LYMPHOCYTES # (AUTO) 1.3 10^3/uL (1.5-3.5); LYMPHOCYTES % (AUTO) 20.5 %; MEAN CORPUSCULAR HEMOGLOBIN 30.3 pg (27.0-31.0); MEAN CORPUSCULAR HGB CONC 31.1 g/dL (32.0-36.0); MEAN CORPUSCULAR VOLUME 97.5 fL (81.0-99.0); MEAN PLATELET VOLUME 10.8 fL (7.9-10.8); MONOCYTES # (AUTO) 0.5 10^3/uL (0.0-1.0); MONOCYTES % (AUTO) 8.4 %; NEUTROPHILS # (AUTO) 4.1 10^3/uL (1.5-6.6); NEUTROPHILS % (AUTO) 63.9 %; PLT - PLATELET COUNT 196 10^3/uL (130-450); RED BLOOD COUNT 4.39 10^6/uL (4.20-5.40); RED CELL DISTRIBUTION WIDTH 13.8 % (12.0-15.0); WHITE BLOOD COUNT 6.4 x10^3/uL (4.8-10.8)
[2023-03-16 13:19] LABS: CREATININE,URINE 160.7 mg/dL; MICROALBUMIN,URINE 2.9 mg/dL
[2023-03-16 13:44] LABS: ESTIMATED AVERAGE GLUCOSE 108 mg/dL (70-100); HEMOGLOBIN A1c% 5.4 % (4.27-6.07)
== END 2023-03-16 07:15 | disposition home or self-care (01) ==
LOC: LAB.N 07:14
PROVIDERS: ATTEND Internal Medicine
DX: C50.911 Malignant neoplasm of unspecified site of right female breast (principal); E78.5 Hyperlipidemia, unspecified; R73.01 Impaired fasting glucose
CPT/HCPCS: 36415; 80053; 80061; 82043; 82570; 83036; 83721; 85025

== ENCOUNTER 2023-08-25 09:27 | Outpatient (CLI) | payer MEDICARE, OTHER ==
[2023-08-25 19:32] LABS: BASOPHILS # (AUTO) 0.1 10^3/uL (0.0-0.1); BASOPHILS % (AUTO) 1.4 %; EOSINOPHILS # (AUTO) 0.2 10^3/uL (0.0-0.7); EOSINOPHILS % (AUTO) 3.9 %; HCT - HEMATOCRIT 44.4 % (37.0-47.0); HGB - HEMOGLOBIN 13.8 g/dL (12.0-16.0); LYMPHOCYTES # (AUTO) 1.1 10^3/uL (1.5-3.5); LYMPHOCYTES % (AUTO) 18.7 %; MEAN CORPUSCULAR HEMOGLOBIN 30.3 pg (27.0-31.0); MEAN CORPUSCULAR HGB CONC 31.1 g/dL (32.0-36.0); MEAN CORPUSCULAR VOLUME 97.4 fL (81.0-99.0); MEAN PLATELET VOLUME 10.9 fL (7.9-10.8); MONOCYTES # (AUTO) 0.5 10^3/uL (0.0-1.0); MONOCYTES % (AUTO) 9.2 %; NEUTROPHILS # (AUTO) 3.8 10^3/uL (1.5-6.6); NEUTROPHILS % (AUTO) 66.6 %; PLT - PLATELET COUNT 213 10^3/uL (130-450); RED BLOOD COUNT 4.56 10^6/uL (4.20-5.40); RED CELL DISTRIBUTION WIDTH 13.8 % (12.0-15.0); WHITE BLOOD COUNT 5.6 x10^3/uL (4.8-10.8)
[2023-08-25 19:57] LABS: BILIRUBIN,URINE NEGATIVE (NEGATIVE); GLUCOSE, URINE (UA) NEGATIVE (NEGATIVE); KETONES,URINE (UA) NEGATIVE (NEGATIVE); LEUKOCYTE ESTERASE, URINE NEGATIVE (NEGATIVE); NITRITE,URINE NEGATIVE (NEGATIVE); OCCULT BLOOD,URINE NEGATIVE (NEGATIVE); PROTEIN,URINE NEGATIVE (NEGATIVE); UROBILINOGEN,URINE 0.2 (NORMAL) E.U./dL (NORMAL)
[2023-08-25 19:58] LABS: ALBUMIN 4.3 g/dL (3.2-5.5); ALBUMIN/GLOBULIN RATIO 1.7 (1.0-2.2); ALKALINE PHOSPHATASE 66 IU/L (42-121); ALT ALANINE AMINOTRANSFERASE 14 IU/L (10-60); AST ASPARTATE AMINOTRANSFERASE 17 IU/L (10-42); BILIRUBIN,TOTAL 0.8 mg/dL (0.2-1.0); BUN - BLOOD UREA NITROGEN 21 mg/dL (6-20); CALCIUM 10.4 mg/dL (8.5-10.3); CARBON DIOXIDE - CO2 28 mmol/L (21-32); CHLORIDE 106 mmol/L (101-111); CHOL/HDL RATIO 1.9 (<4.4); CHOLESTEROL 148 mg/dL; CREATININE 0.7 mg/dL (0.6-1.3); GFR - MDRD 81 (>89); GLUCOSE 99 mg/dL (74-104); HDL CHOLESTEROL 78 mg/dL; LDL CHOLESTEROL,CALCULATED 54 mg/dL; LDL/HDL RATIO 0.7 (<4.4); POTASSIUM 4.1 mmol/L (3.5-4.5); SODIUM 139 mmol/L (135-145); TOTAL PROTEIN 6.9 g/dL (6.4-8.9); TRIGLYCERIDES 81 mg/dL (48-352); VLDL CHOLESTEROL 16 mg/dL
[2023-08-25 20:06] LABS: BACTERIA,URINE None Seen /HPF (None Seen); CLARITY,URINE CLEAR (CLEAR); RBC,URINE 0-5 /HPF (0-5); SQUAMOUS EPITHELIAL CELL,UR NONE SEEN (<= Few); WBC,URINE 0-3 /HPF (0-5)
[2023-08-25 20:27] LABS: THYROID STIMULATING HORMONE 0.66 uIU/mL (0.34-5.60)
[2023-08-25 21:09] LABS: ESTIMATED AVERAGE GLUCOSE 105 mg/dL (70-100); HEMOGLOBIN A1c% 5.3 % (4.27-6.07)
== END 2023-08-25 09:28 | disposition home or self-care (01) ==
LOC: LAB.N 09:27
PROVIDERS: ATTEND Physician Assistant
DX: E78.5 Hyperlipidemia, unspecified (principal); R42 Dizziness and giddiness; R73.01 Impaired fasting glucose
CPT/HCPCS: 36415; 80053; 80061; 81001; 81003; 83036; 83721; 84443; 85025; 87086

== ENCOUNTER 2024-03-18 07:27 | Outpatient (CLI) | payer MEDICARE, OTHER ==
[2024-03-18 12:46] LABS: CALCIUM 10.3 mg/dL (8.5-10.3); CREATININE 0.9 mg/dL (0.6-1.3); POTASSIUM 3.6 mmol/L (3.5-4.5)
== END 2024-03-18 07:28 | disposition home or self-care (01) ==
LOC: LAB.N 07:27
PROVIDERS: ATTEND Internal Medicine
DX: I10 Essential (primary) hypertension (principal)
CPT/HCPCS: 36415; 80048